=== PATIENT | female | born 1995 | race Caucasian/White ===

== ENCOUNTER 2021-09-21 08:06 | Emergency (ER) | payer BC, SELFPAY ==
[2021-09-21 08:17] VITALS: BP 130/73; PULSE 96; RESP 16; TEMP 36.8; O2SAT 100
--- NOTE | 2021-09-21 08:39 | ED.DIZZY ---
HPI - Dizziness General Chief Complaint: Dizziness Stated Complaint: Fall Injury/Head/Dizziness Time Seen by Provider: 09/21/21 08:45 Source: patient and RN notes reviewed Mode of arrival: ambulatory Limitations: no limitations History of Present Illness HPI Narrative: 25-year-old female presented for complaint of episode of vertigo this morning. She endorses a history of vertigo and takes meclizine as needed. She states she was walking and had a rapid dizzy spell causing her to fall against the wall, she did catch herself with her hands but struck the right forehead on the wall. Denies loss of consciousness, currently headache is located on the left forehead. Endorses nausea, runny nose and dizziness worse with eyes closed. She has not taken anything for symptoms. She did have an episode of vomiting, which she states she was around someone who had bad breath and thinks that contributed to her vomiting. She denies abdominal pain, urinary complaints, chest pain or palpitations, shortness of breath. Was seen by her PCP yesterday. Related Data Home Medications Medication Instructions Recorded Confirmed Advair Diskus DAILY 09/21/21 Lunesta 3 mg PO QPM 09/21/21 09/21/21 albuterol PRN 09/21/21 citalopram 40 mg PO DAILY 09/21/21 09/21/21 clonazepam 0.5 mg PO PRN PRN 09/21/21 09/21/21 meclizine 25 mg PO PRN PRN 09/21/21 09/21/21 trazodone 100 mg PO QPM 09/21/21 09/21/21 Allergies Allergy/AdvReac Type Severity Reaction Status Date / Time latex Allergy Hives Verified 09/21/21 08:28 Penicillins Allergy Hives Verified 09/21/21 08:28 Review of Systems Review of Systems: CONSTITUTIONAL: Endorses malaise, chills, sweats, fever EYES: Denies visual changes, redness, or discharge ENT: Reports rhinorrhea, congestion, sinus pain, otalgia, sore throat CARDIOVASCULAR: Denies chest pain, palpitations, edema RESPIRATORY: Reports cough, post nasal drainage. Denies dyspnea GASTROINTESTINAL: Denies abdominal pain, nausea, vomiting, diarrhea SKIN: Denies rash or itching MUSCULOSKELETAL: Endorses myalgia NEUROLOGIC: Denies headache Exam Narrative: GENERAL: well-appearing, nontoxic HEAD: Normocephalic, atraumatic EYES: EOMI. PERRLA, conjunctivae clear ENT: Mucous membranes moist. TM pearly wilburn with dull light reflex and fluid bilaterally, erythematous canals bilateral; no tragal tenderness. Oropharynx erythematous without lesions or exudate, no drooling, no hoarseness, no trismus, uvula midline. NECK: Supple. No lymphadenopathy CHEST: Clear to auscultation, breath sounds equal. No wheezing, rhonchi, rales, or stridor. No respiratory distress, speaks in full sentences. HEART: Regular rate and rhythm. No murmur heard. SKIN: Warm, dry, no rash. NEURO: Alert and oriented x3. PSYCH: Normal mood and affect Course Course Emergency Course: Patient is aware of diagnosis, understands and agrees to treatment plan. Anticipatory guidance given. Patient agrees to follow-up as directed and is aware of reasons to seek care at the emergency department. Portions of this record may have been created with voice recognition software Level of Care: Express Care Visit Vital Signs Vital signs: Vital Signs Temperature 98.3 F 09/21/21 08:17 Pulse Rate 96 09/21/21 08:17 Respiratory Rate 16 09/21/21 08:17 Blood Pressure 130/73 09/21/21 08:17 Pulse Oximetry 100 09/21/21 08:17 Temperature 98.3 F 09/21/21 08:17 Pulse Rate 96 09/21/21 08:17 Respiratory Rate 16 09/21/21 08:17 Blood Pressure 130/73 09/21/21 08:17 Pulse Oximetry 100 09/21/21 08:17 reviewed MDM - Dizziness Differential Diagnosis Differential diagnosis: Likely benign paroxysmal positional vertigo, orthostatic hypotension and acute vestibular neuronitis Discharge Plan Discharge Clinical Impression: Benign paroxysmal positional vertigo Qualifiers: Laterality: unspecified laterality Qualified Code(s): H81.10 - Benign paroxysmal vertigo, unspecified ea
== END 2021-09-21 09:00 | disposition home or self-care (01) ==
PROVIDERS: Emergency Provider Nurse Practitioner Family; PCP Physician Assistant
DX: H81.10 Benign paroxysmal vertigo, unspecified ear (principal)
CPT/HCPCS: 99213; G0463

== ENCOUNTER 2021-10-30 08:05 | Emergency (ER) | payer BC, SELFPAY ==
[2021-10-30 08:12] VITALS: BP 128/82; PULSE 122; RESP 18; TEMP 36.8; O2SAT 98
--- NOTE | 2021-10-30 08:14 | ED.URI ---
HPI - URI/Sore Throat General Stated Complaint: Cough Time Seen by Provider: 10/30/21 08:17 Source: patient and RN notes reviewed Mode of arrival: ambulatory Limitations: no limitations History of Present Illness HPI Narrative: 25-year-old female presents with concern for cough, nasal congestion, body aches. She reports symptoms started on Friday. She reports the cough has progressively worsened, keeping her awake at night. She reports she has been using nasal spray without relief. She denies fever, chills, sweats. Denies known sick contacts. Reports she had Covid in July. MD elicited complaint: cough and nasal congestion Related Data Home Medications Medication Instructions Recorded Confirmed Lunesta 3 mg PO QPM PRN 09/21/21 10/30/21 citalopram 40 mg PO DAILY 09/21/21 10/30/21 clonazepam 0.5 mg PO PRN PRN 09/21/21 09/21/21 trazodone 100 mg PO QPM PRN 09/21/21 10/30/21 albuterol sulfate 90 mcg INHALATION Q4-6H PRN 10/30/21 10/30/21 norgestrel-ethinyl estradiol 0.3 tablet PO DAILY 10/30/21 10/30/21 [Barrett (28)] Allergies Allergy/AdvReac Type Severity Reaction Status Date / Time latex Allergy Hives Verified 10/30/21 08:17 Penicillins Allergy Hives Verified 10/30/21 08:17 Review of Systems Review of Systems: CONSTITUTIONAL: Denies malaise, chills, sweats, or fever. EYES: Denies visual changes, redness, or discharge. ENT: Reports rhinorrhea, congestion. Denies sinus pain, otalgia and sore throat. CARDIOVASCULAR: Denies chest pain, palpitations, or edema. RESPIRATORY: Reports cough. Denies dyspnea. GASTROINTESTINAL: Denies abdominal pain, nausea, vomiting, diarrhea SKIN: Denies rash or itching. MUSCULOSKELETAL: Reports myalgia. NEUROLOGIC: Denies headache. All systems reviewed & are unremarkable except as noted in HPI and below PMFSH Comments At time of signature, agree with nursing past medical, surgical, social and family history. There is no relevant family history pertinent to the presenting complaint Exam Narrative: GENERAL: Well-appearing, well-nourished, and in no acute distress. HEAD: Normocephalic EYES: PERRLA, conjunctivae clear ENT: Nares clear, turbinates edematous and erythematous, clear discharge. Mucous membranes moist. TM pearly wilburn with dull light reflex bilaterally; no tragal tenderness. Oropharynx not erythematous without lesions. Tonsils not enlarged and without exudate, no drooling, no hoarseness, no trismus, uvula midline. Cough noted NECK: Supple. No lymphadenopathy CHEST: Clear to auscultation, breath sounds equal. No wheezing, rhonchi, rales, or stridor. No respiratory distress, speaks in full sentences. HEART: Regular rate and rhythm. No murmur heard. SKIN: Warm, dry, no rash. NEURO: Alert and oriented x3. PSYCH: Normal mood and affect Course Course Emergency Course: Patient is aware of diagnosis, understands and agrees to treatment plan. Anticipatory guidance given. Patient agrees to follow-up as directed and is aware of reasons to seek care at the emergency department. Portions of this record may have been created with voice recognition software Level of Care: Express Care Visit Vital Signs Vital signs: Reviewed. MDM - URI/Sore Throat MDM Narrative Medical decision making narrative: Differential diagnosis considered: Jimenez virus, strep pharyngitis, allergic rhinitis, upper respiratory tract infection, sinusitis, rhinosinusitis, nasopharyngitis. viral pharyngitis, otitis media, otitis externa, pneumonia, bronchitis, viral cough syndrome, viral syndrome, and influenza. Exam findings show no acute concerns or changes; patient is non-toxic appearing and is in no distress. Patient is appropriate for outpatient treatment and follow-up. Lab Data Attestation: I reviewed the patient's lab results. Critical Care Time Critical Care Time Critical Care Time: No Discharge Plan Discharge Clinical Impression: Sinobronchitis Patient Disposition: Home, Self-Care Condition: S
[2021-10-30 08:25] VITALS: BP 128/82; PULSE 122; RESP 18; TEMP 36.8; O2SAT 98
== END 2021-10-30 08:44 | disposition home or self-care (01) ==
PROVIDERS: Emergency Provider Nurse Practitioner; PCP Physician Assistant
DX: J32.9 Chronic sinusitis, unspecified (principal); J40 Bronchitis, not specified as acute or chronic; F32.A Depression, unspecified; F41.9 Anxiety disorder, unspecified
CPT/HCPCS: 87804; 99213; G0463

== ENCOUNTER 2021-11-16 14:47 | Emergency (ER) | payer BC, SELFPAY ==
--- NOTE | 2021-11-16 14:49 | ED.NAVMDI ---
HPI - Nausea/Vomiting/Diarrhea General Chief complaint: Nausea/Vomiting/Diarrhea Stated complaint: nausea diahhrea Time Seen by Provider: 11/16/21 14:49 Source: patient and RN notes reviewed History of Present Illness HPI Narrative: Patient is a 25-year-old female who presents the urgent care with complaints of nausea, vomiting and diarrhea. 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 Patient states that her symptoms have been improving and she has not had any vomiting or diarrhea in the last 24 hours. Patient states that she has been able to eat and has been sticking to the brat diet. Denies any fevers. Patient states she needs a work excuse for her time off. No other acute complaints. No acute distress noted. Patient aware of the plan of care. Some parts of this dictation were generated by voice recognition software and may contain typographical and/or grammatical inaccuracies. Related Data Home Medications Medication Instructions Recorded Confirmed Lunesta 3 mg PO QPM PRN 09/21/21 10/30/21 citalopram 40 mg PO DAILY 09/21/21 10/30/21 trazodone 100 mg PO QPM PRN 09/21/21 10/30/21 albuterol sulfate 90 mcg INHALATION Q4-6H PRN 10/30/21 10/30/21 norgestrel-ethinyl estradiol 0.3 tablet PO DAILY 10/30/21 10/30/21 [Barrett (28)] azelastine INTRANASAL 11/16/21 famotidine 20 mg DIRECTED 11/16/21 11/16/21 fluticasone propion-salmeterol 250 inh INHALATION DIRECTED 11/16/21 11/16/21 [Advair Diskus] Allergies Allergy/AdvReac Type Severity Reaction Status Date / Time latex Allergy Hives Verified 10/30/21 08:17 Penicillins Allergy Hives Verified 10/30/21 08:17 Review of Systems Review of Systems: CONSTITUTIONAL: Denies fever, chills, or sweats. EYES: Denies visual changes, redness, or discharge. ENT: Denies rhinorrhea, congestion, sore throat, or otalgia. CARDIOVASCULAR: Denies chest pain, palpitations, or edema. RESPIRATORY: Denies cough or dyspnea. GASTROINTESTINAL: Reports of improving nausea, vomiting, diarrhea and abdominal cramping GENITOURINARY: Denies dysuria or hematuria. SKIN: Denies rash or itching. MUSCULOSKELETAL: Denies back pain, joint pain, or myalgia. NEUROLOGIC: Denies headache, numbness, or weakness. All other systems reviewed are negative, except as documented in HPI. PMFSH Comments At the time of my signature, I reviewed and agree with the nursing past medical, surgical, social, and family history. There is no relevant family history pertinent to the patient complaint. Exam Narrative: GENERAL: This is a well-nourished, well-developed patient, in no apparent distress. HEAD: normocephalic, atraumatic. EYES: PERRL. Sclera clear/white. Vision is grossly intact. EARS: External ears normal NOSE: External nose normal with no obvious nasal discharge, nares without redness, no rhinorrhea. THROAT: Mucous membranes moist NECK: Neck supple CARDIOVASCULAR: Regular rate and rhythm without murmurs, gallops, or rubs. RESPIRATORY: Clear to auscultation. Breath sounds equal bilaterally. No wheezes, rales, or rhonchi. GASTROINTESTINAL: Abdomen soft, non-tender, nondistended. Bowel sounds are active. SKIN: warm, intact with no suspicious lesions or rash, good texture and turgor. NEURO: awake, alert, and oriented to person, place and time. There were no obvious focal neurologic abnormalities. EXTREMITIES: No clubbing, cyanosis, or edema. Course Course Level of Care: Express Care Visit Vital Signs Vital signs: Vital Signs Temperature 98.3 F 11/16/21 14:51 Pulse Rate 107 H 11/16/21 14:51 Respiratory Rate 16 11/16/21 14:51 Blood Pressure 129/84 11/16/21 14:51 Pulse Oximetry 100 11/16/21 14:51 Temperature 98.3 F 11/16/21 14:51 Pulse Rate 107 H 11/16/21 14:51 Respiratory Rate 16 11/16/21 14:51 Blood Pressure 129/84 11/16/21 14:51 Pulse Oximetry 100 11/16/21 14:51 Reviewed MDM - Nausea/Vomiting/Diarr
[2021-11-16 14:51] VITALS: BP 129/84; PULSE 107; RESP 16; TEMP 36.8; O2SAT 100
== END 2021-11-16 15:20 | disposition home or self-care (01) ==
PROVIDERS: Emergency Provider Nurse Practitioner Family; PCP Physician Assistant
DX: R11.2 Nausea with vomiting, unspecified (principal); J45.909 Unspecified asthma, uncomplicated; F41.9 Anxiety disorder, unspecified; F32.A Depression, unspecified
CPT/HCPCS: 99211; G0463

== ENCOUNTER 2021-12-07 08:19 | Emergency (ER) | payer BC, SELFPAY ==
--- NOTE | 2021-12-07 08:27 | ED.URI ---
HPI - URI/Sore Throat General Chief Complaint: Upper Respiratory Infection Stated Complaint: aches congestion sore throat Time Seen by Provider: 12/07/21 08:33 Source: patient, RN notes reviewed and old records reviewed Mode of arrival: ambulatory Limitations: no limitations History of Present Illness HPI Narrative: 25-year-old female who presents to [facility] with complaints of sore throat, headache, dry cough, nasal congestion,body aches,low grade temperature up to 100.5F, some nausea,sinus congestion for the past 3 days. Patient reports history of asthma is taking inhalers as prescribed, denies any acute shortness of breath or any wheezing, reports that cough is dry. Patient has had COVID vaccinations and COVID in July of 2021, has also had flu shot. Patient reports that she has been taking Ibuprofen and also Zyrtec daily for her symptoms. MD elicited complaint: fever (low grade), cough, sore throat, nasal congestion and other (sinus congestion) Pertinent past history: asthma Onset (ago): day(s) (3) Consistency: progressively worsening Severity: moderate Pain scale (0-10): 6 Description of mucous: clear Able to tolerate fluids by mouth: Yes Exacerbating factors: swallowing Associated symptoms: fever (low grade), myalgias, headache, nasal congestion, sore throat, cough and nausea Treatments prior to arrival: ibuprofen Related Data Home Medications Medication Instructions Recorded Confirmed citalopram 40 mg PO DAILY 09/21/21 12/07/21 trazodone 100 mg PO QPM PRN 09/21/21 12/07/21 albuterol sulfate 90 mcg INHALATION Q4-6H PRN 10/30/21 12/07/21 norgestrel-ethinyl estradiol 0.3 tablet PO DAILY 10/30/21 12/07/21 [Barrett (28)] azelastine 137 mcg INTRANASAL DIRECTED 11/16/21 12/07/21 famotidine 20 mg PO BID 11/16/21 12/07/21 eszopiclone 3 mg PO DAILY 12/07/21 12/07/21 fluticasone propion-salmeterol 1 inh INHALATION DAILY 12/07/21 12/07/21 [Advair Diskus] montelukast 10 mg PO DAILY 12/07/21 12/07/21 Allergies Allergy/AdvReac Type Severity Reaction Status Date / Time latex Allergy Hives Verified 12/07/21 08:36 Penicillins Allergy Hives Verified 12/07/21 08:36 Review of Systems Review of Systems: CONSTITUTIONAL: Low grade fever, chills, or sweats. EYES: Denies visual changes, redness, or discharge. ENT: Denies rhinorrhea,positive for congestion, sore throat, no otalgia. CARDIOVASCULAR: Denies chest pain, palpitations, or edema. RESPIRATORY: Positive for dry cough denies dyspnea. GASTROINTESTINAL: Denies abdominal pain,reports some nausea,no vomiting, or diarrhea. GENITOURINARY: Denies dysuria or hematuria. SKIN: Denies rash or itching. MUSCULOSKELETAL: Denies back pain, joint pain, reports body aches NEUROLOGIC: Reports headache,no numbness, or weakness. PSYCHIATRIC: Positive for history of anxiety or depression. All systems reviewed & are unremarkable except as noted in HPI and below PMFSH Past Medical History Medical History (Updated 12/07/21 @ 09:12 by Holli Kenyon NP) ADHD (attention deficit hyperactivity disorder) Asthma COVID-15 August 2021 Depression PTSD (post-traumatic stress disorder) Surgical History Surgical History (Updated 12/07/21 @ 08:53 by Holli Kenyon NP) H/O adenoidectomy [place] teeth extracted Family History Family History (Updated 12/07/21 @ 08:55 by Holli Kenyon NP) Father Throat cancer Mother Asthma Acute myocardial infarction Heart disease Hypertension Grandparent Heart disease Macular degeneration Social History Social History (Updated 12/07/21 @ 08:56 by Holli Kenyon NP) Smoking status: Never smoker Alcohol intake: current Alcohol use details: rare Substance use type: does not use Living arrangements: with family 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
[2021-12-07 08:28] VITALS: BP 137/72; PULSE 111; RESP 16; TEMP 37.3; O2SAT 100
== END 2021-12-07 09:12 | disposition home or self-care (01) ==
PROVIDERS: Emergency Provider Registered Nurse; PCP Physician Assistant
DX: J06.9 Acute upper respiratory infection, unspecified (principal); J45.909 Unspecified asthma, uncomplicated; F32.A Depression, unspecified; F43.10 Post-traumatic stress disorder, unspecified; Z86.16 Personal history of COVID-19
CPT/HCPCS: 87081; 87804; 87880; 99213; G0463

== ENCOUNTER 2021-12-13 15:19 | Emergency (ER) | payer BC, SELFPAY ==
--- NOTE | 2021-12-13 15:21 | ED.URI ---
HPI - URI/Sore Throat General Chief Complaint: Upper Respiratory Infection Stated Complaint: upper respiratory Time Seen by Provider: 12/13/21 15:21 Source: patient Mode of arrival: ambulatory Limitations: no limitations History of Present Illness HPI Narrative: Ms. Bradley is a 25-year-old female patient presenting to the clinic today with complaints of productive cough, sore throat, and bilateral ear pain x1 week. She reports she was seen here last week and was diagnosed with an upper respiratory infection was given a prescription for some prednisone. She reports now her cough is productive and she is bringing up some white phlegm, history of asthma. MD elicited complaint: sore throat and nasal congestion Related Data Home Medications Medication Instructions Recorded Confirmed citalopram 40 mg PO DAILY 09/21/21 12/13/21 trazodone 100 mg PO QPM PRN 09/21/21 12/13/21 albuterol sulfate 90 mcg INHALATION Q4-6H PRN 10/30/21 12/13/21 norgestrel-ethinyl estradiol 0.3 tablet PO DAILY 10/30/21 12/13/21 [Barrett (28)] azelastine 137 mcg INTRANASAL DIRECTED 11/16/21 12/13/21 famotidine 20 mg PO BID 11/16/21 12/13/21 fluticasone propion-salmeterol 1 inh INHALATION DAILY 12/07/21 12/13/21 [Advair Diskus] montelukast 10 mg PO DAILY 12/07/21 12/13/21 Allergies Allergy/AdvReac Type Severity Reaction Status Date / Time latex Allergy Hives Verified 12/13/21 15:28 Penicillins Allergy Hives Verified 12/13/21 15:28 Review of Systems Review of Systems: Pertinent positives per HPI. Patient denies any fever, chills, rash, headache, visual changes, dizziness, cough, shortness of breath, chest pain, palpitations, nausea, vomiting, diarrhea, constipation, abdominal pain, or any urinary issues. 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 There is no relevant family history pertinent to the patient complaint. Exam Narrative: General: Well-developed, well nourished, in no apparent distress Head: Normocephalic, atraumatic Eyes: Pupils equally round and reactive to light bilaterally, EOM intact, sclera and conjunctive clear, no discharge, lids normal Ears: TMs intact, red, and bulging, right ear canals clear, left ear canal red with greenish discharge, grossly hearing normal. Nose: Nares patent, clear nasal discharge, mild inflammation, no sinus tenderness. Mouth: Oral pharynx without lesions or masses, good dentition, MMM. Oropharynx red Neck: Supple, trachea midline, mild enlargement of anterior cervical nodes, no thyroid masses or goiter palpable. Cardio: Regular rate and rhythm, s1 and s2 normal, no murmur appreciated. Resp: Faint expiratory wheezing posteriorly lower bases otherwise clear, no rhonchi, rales, or rubs Course Course Emergency Course: Portions of this record may have been created with voice recognition software. Level of Care: Express Care Visit Vital Signs Vital signs: Vital signs
[2021-12-13 15:28] VITALS: BP 135/93; PULSE 93; RESP 16; TEMP 36.6; O2SAT 100
== END 2021-12-13 16:05 | disposition home or self-care (01) ==
PROVIDERS: Emergency Provider Nurse Practitioner Family; PCP Physician Assistant
DX: J40 Bronchitis, not specified as acute or chronic (principal); H66.003 Acute suppurative otitis media without spontaneous rupture of ear drum, bilateral; J02.9 Acute pharyngitis, unspecified; H60.312 Diffuse otitis externa, left ear; J45.909 Unspecified asthma, uncomplicated; F41.9 Anxiety disorder, unspecified; F32.A Depression, unspecified; Z86.16 Personal history of COVID-19
CPT/HCPCS: 99213; G0463

== ENCOUNTER 2022-01-01 08:36 | Emergency (ER) | payer BC, SELFPAY ==
[2022-01-01 08:42] VITALS: BP 134/79; PULSE 98; RESP 18; TEMP 36.7; O2SAT 100
--- NOTE | 2022-01-01 09:04 | ED.EAR ---
HPI - Ear Problem General Chief complaint: Ear Stated complaint: fever and ear pressure Time Seen by Provider: 01/01/22 09:04 Source: patient and RN notes reviewed Mode of arrival: ambulatory Limitations: no limitations History of Present Illness HPI Narrative: 26-year-old female presents with concern for fever, ear pressure. She reports she has been ill for over a month has been seen in this clinic several times and has also been seen by her primary care doctor. She reports she has had several round of antibiotics and steroids. Reports symptoms improved but do not resolve. She reports she began having worsening symptoms yesterday with high fever, fatigue, headache. Reports taking Tylenol. She reports she is been taking her usual allergy and sinus medications, including sinus rinses. 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 MD Complaint: ear pain Related Data Home Medications Medication Instructions Recorded Confirmed citalopram 40 mg tablet 40 mg PO DAILY 09/21/21 01/01/22 trazodone 100 mg tablet 100 mg PO QPM PRN Sleep 09/21/21 01/01/22 albuterol sulfate 90 mcg/actuation 90 mcg inhalation Q4-6H PRN 10/30/21 01/01/22 aerosol inhaler Shortness Of Breath norgestrel 0.3 mg-ethinyl 0.3 tablet PO DAILY 10/30/21 01/01/22 estradiol 30 mcg tablet (Barrett (28)) azelastine 137 mcg (0.1 %) nasal 137 mcg intranasal DIRECTED 11/16/21 01/01/22 spray aerosol famotidine 20 mg tablet 20 mg PO BID 11/16/21 01/01/22 montelukast 10 mg tablet 10 mg PO DAILY 12/07/21 01/01/22 Allergies Allergy/AdvReac Type Severity Reaction Status Date / Time latex Allergy Hives Verified 01/01/22 09:14 Penicillins Allergy Hives Verified 01/01/22 09:14 Review of Systems Review of Systems: CONSTITUTIONAL: Reports malaise, fatigue, fever. EYES: Denies visual changes, redness, or discharge. ENT: Reports rhinorrhea, congestion. Denies sinus pain, and sore throat. Reports ear fullness and occasional pain bilaterally CARDIOVASCULAR: Denies chest pain, palpitations, or edema. RESPIRATORY: Denies cough. Denies dyspnea. GASTROINTESTINAL: Reports left upper quadrant abdominal discomfort, mild nausea, vomiting, diarrhea SKIN: Denies rash or itching. MUSCULOSKELETAL: Reports myalgia. NEUROLOGIC: Reports headache. All systems reviewed & are unremarkable except as noted in HPI and below PMFSH Past Medical History Medical History ADHD (attention deficit hyperactivity disorder) Asthma COVID-15 August 2021 Depression PTSD (post-traumatic stress disorder) Surgical History Surgical History H/O adenoidectomy [place] teeth extracted Family History Family History Father Throat cancer Mother Asthma Acute myocardial infarction Heart disease Hypertension Grandparent Heart disease Macular degeneration Social History Social History Smoking status: Never smoker Alcohol intake: current Alcohol use details: rare Substance use type: does not use 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 There is no relevant family history pertinent to the presenting complaint Exam Narrative: GENERAL: Nontoxic-appearing and in no acute distress. HEAD: Normocephalic EYES: PERRLA, conjunctivae clear ENT: Nares clear, clear discharge. Mucous membranes moist. TM very mildly erythematous, not bulging with dull light reflex bilaterally; no tragal tenderness. Oropharynx not erythematous without lesions. Tonsils not enlarged and without exudate, no drooling, no hoarseness, no trismus, uvula midline. NECK: Supple. No lymphadenopathy CHEST: Sylvie
== END 2022-01-01 09:46 | disposition home or self-care (01) ==
PROVIDERS: Emergency Provider Nurse Practitioner; PCP Physician Assistant
DX: B27.90 Infectious mononucleosis, unspecified without complication (principal); Z20.822 Contact with and (suspected) exposure to COVID-19; J45.909 Unspecified asthma, uncomplicated; F32.A Depression, unspecified; Z86.16 Personal history of COVID-19
CPT/HCPCS: 36416; 86308; 87426; 87804; 99213; C9803; G0463

== ENCOUNTER 2022-06-28 16:54 | Emergency (ER) | payer BC, SELFPAY ==
[2022-06-28 17:00] VITALS: BP 127/73; PULSE 95; RESP 16; TEMP 36.6; O2SAT 99
--- NOTE | 2022-06-28 19:34 | ED.URI ---
HPI - URI/Sore Throat General Chief Complaint: Upper Respiratory Infection Stated Complaint: coughs and make chest and throat hurt Time Seen by Provider: 06/28/22 19:35 Source: patient, RN notes reviewed and old records reviewed Mode of arrival: ambulatory Limitations: no limitations History of Present Illness HPI Narrative: 26 year old female who presets to express care with complaints of cough, sore throat, hurts to swallow, coughed so hard last night she vomited denies any fevers. Patient reports that she saw her PCP 2 weeks ago and received Doxycycline and Benzonatate for her cough. Patient reports that she has not had recent fever. Patient states she has had COVID vaccinations and booster and has had flu shot. Patient reports that she has used inhaler sudafed and also Mucinex for her symptoms. MD elicited complaint: cough and sore throat Pertinent past history: asthma Pain scale (0-10): 5 Treatments prior to arrival: other (inhaler sudafed and Mucinex) Related Data Home Medications Medication Instructions Recorded Confirmed citalopram 40 mg tablet 40 mg PO DAILY 09/21/21 06/28/22 trazodone 100 mg tablet 100 mg PO QPM PRN Sleep 09/21/21 06/28/22 albuterol sulfate 90 mcg/actuation 90 mcg inhalation Q4-6H PRN 10/30/21 06/28/22 aerosol inhaler Shortness Of Breath norgestrel 0.3 mg-ethinyl 0.3 tablet PO DAILY 10/30/21 06/28/22 estradiol 30 mcg tablet (Barrett (28)) azelastine 137 mcg (0.1 %) nasal 137 mcg intranasal DIRECTED 11/16/21 06/28/22 spray aerosol famotidine 20 mg tablet 20 mg PO BID 11/16/21 06/28/22 montelukast 10 mg tablet 10 mg PO DAILY 12/07/21 06/28/22 Allergies Allergy/AdvReac Type Severity Reaction Status Date / Time latex Allergy Hives Verified 06/28/22 18:25 Penicillins Allergy Hives Verified 06/28/22 18:25 Review of Systems Review of Systems: CONSTITUTIONAL: Denies malaise, chills, sweats, or fever. EYES: Denies visual changes, redness, or discharge. ENT: Reports rhinorrhea, congestion, sinus pain,no otalgia positive for sore throat. CARDIOVASCULAR: Denies chest pain, palpitations, or edema. RESPIRATORY: Reports cough.? Denies dyspnea, chest sore from frequent cough, has coughed so hard she has vomited GASTROINTESTINAL: Denies abdominal pain, nausea, vomiting, diarrhea SKIN: Denies rash or itching. MUSCULOSKELETAL: Denies myalgia. NEUROLOGIC: Denies headache. All systems reviewed & are unremarkable except as noted in HPI and below PMFSH Past Medical History Medical History ADHD (attention deficit hyperactivity disorder) Asthma COVID-15 August 2021 Depression PTSD (post-traumatic stress disorder) Surgical History Surgical History H/O adenoidectomy [place] teeth extracted Family History Family History Father Throat cancer Mother Asthma Acute myocardial infarction Heart disease Hypertension Grandparent Heart disease Macular degeneration Social History Social History Smoking status: Never smoker Alcohol intake: current Alcohol use details: rare Substance use type: does not use 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 There is no relevant family history pertinent to the presenting complaint Exam Narrative: GENERAL: Well-appearing, well-nourished, and in no acute distress. HEAD: Normocephalic EYES: PERRLA, conjunctivae clear ENT: Nares clear, turbinates edematous and erythematous, clear discharge. Mucous membranes moist. TM pearly wilburn with dull light reflex bilaterally; no tragal tenderness. Oropharynx erythematous without lesions. Tonsils re
== END 2022-06-28 19:51 | disposition home or self-care (01) ==
PROVIDERS: Emergency Provider Registered Nurse; PCP Physician Assistant
DX: J02.0 Streptococcal pharyngitis (principal); R05.9 Cough, unspecified; J45.909 Unspecified asthma, uncomplicated
CPT/HCPCS: 87804; 99213; G0463

== ENCOUNTER 2022-07-10 08:13 | Emergency (ER) | payer BC, SELFPAY ==
[2022-07-10 08:18] VITALS: BP 126/90; PULSE 112; RESP 16; TEMP 36.7; O2SAT 99
--- NOTE | 2022-07-10 08:41 | ED.URI ---
HPI - URI/Sore Throat General Chief Complaint: Upper Respiratory Infection Stated Complaint: Cough/Vomiting Time Seen by Provider: 07/10/22 08:41 Source: patient and RN notes reviewed Mode of arrival: ambulatory Limitations: no limitations History of Present Illness HPI Narrative: 26 y/o female presented for c/o persistent cough and sinus drainage for 2 weeks. In mid May her PCP gave doxycycline and benzonatate. On 06/28/22 pt was given prednisone, azithromycin and guaifenesin with codeine. She has completed the medication as directed without change in symptoms. She endorses nausea and vomiting and diarrhea starting yesterday. She stays the vomiting is sinus mucus. She is able to keep food down. Patient denies chest pain, heart racing, shortness of breath, abdominal pain, fevers or chills. History of asthma, using inhaler as needed. She had a negative covid test at home yesterday. MD elicited complaint: cough Related Data Home Medications Medication Instructions Recorded Confirmed citalopram 40 mg tablet 40 mg PO DAILY 09/21/21 07/10/22 trazodone 100 mg tablet 100 mg PO QPM PRN Sleep 09/21/21 07/10/22 albuterol sulfate 90 mcg/actuation 90 mcg inhalation Q4-6H PRN 10/30/21 07/10/22 aerosol inhaler Shortness Of Breath norgestrel 0.3 mg-ethinyl 0.3 tablet PO DAILY 10/30/21 07/10/22 estradiol 30 mcg tablet (Barrett (28)) azelastine 137 mcg (0.1 %) nasal 137 mcg intranasal DIRECTED 11/16/21 07/10/22 spray aerosol famotidine 20 mg tablet 20 mg PO BID 11/16/21 07/10/22 montelukast 10 mg tablet 10 mg PO DAILY 12/07/21 07/10/22 Allergies Allergy/AdvReac Type Severity Reaction Status Date / Time latex Allergy Hives Verified 07/10/22 08:25 Penicillins Allergy Hives Verified 07/10/22 08:25 Review of Systems Review of Systems: CONSTITUTIONAL: Denies malaise, chills, sweats, fever EYES: Denies visual changes, redness, or discharge ENT: Reports rhinorrhea, congestion, denies sinus pain, otalgia, sore throat CARDIOVASCULAR: Denies chest pain, palpitations, edema RESPIRATORY: Reports cough, post nasal drainage. Denies dyspnea GASTROINTESTINAL: Denies abdominal pain SKIN: Denies rash or itching MUSCULOSKELETAL: denies myalgia NEUROLOGIC: Denies headache PMFSH Past Medical History Medical History ADHD (attention deficit hyperactivity disorder) Asthma COVID-15 August 2021 Depression PTSD (post-traumatic stress disorder) Surgical History Surgical History H/O adenoidectomy [place] teeth extracted Family History Family History Father Throat cancer Mother Asthma Acute myocardial infarction Heart disease Hypertension Grandparent Heart disease Macular degeneration Social History Social History Smoking status: Never smoker Alcohol intake: current Alcohol use details: rare Substance use type: does not use 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 TMs pearly wilburn with dull light reflex bilaterally; no tragal tenderness. Oropharynx erythematous without lesions or exudate CHEST: Clear to auscultation, breath sounds equal. No wheezing, rhonchi, rales, or stridor. No respiratory distress, speaks in full sentences. HEART: Regular rate and rhythm. No murmur heard. SKIN: Warm, dry, no rash. NEURO: Alert and oriented x3. PSYCH: Normal mood and affect Course Course Emergency Course: Patient is aware of diagnosis, understands and agrees to treatment plan. Anticipatory guidance given. Patient agrees to follow-up as directed and is aware of reasons to seek care at the emergen
== END 2022-07-10 09:36 | disposition home or self-care (01) ==
PROVIDERS: Emergency Provider Nurse Practitioner Family; PCP Physician Assistant
DX: B34.9 Viral infection, unspecified (principal); K21.9 Gastro-esophageal reflux disease without esophagitis; J45.909 Unspecified asthma, uncomplicated; F32.A Depression, unspecified; F43.10 Post-traumatic stress disorder, unspecified; Z86.16 Personal history of COVID-19
CPT/HCPCS: 87426; 99213; C9803; G0463

== ENCOUNTER 2022-09-02 08:22 | Emergency (ER) | payer BC, SELFPAY ==
[2022-09-02 08:28] VITALS: BP 125/77; PULSE 104; RESP 20; TEMP 36.8; O2SAT 98
--- NOTE | 2022-09-02 08:35 | ED.URI ---
HPI - URI/Sore Throat General Chief Complaint: Upper Respiratory Infection Stated Complaint: sinus infection and crusty eye Time Seen by Provider: 09/02/22 08:30 Source: patient and RN notes reviewed History of Present Illness HPI Narrative: patient is a 26-year-old female who presents to the Urgent Care with complaints of sinus pressure and watery eyes. Patient states that it started Friday. Denies any fever, nausea or vomiting. Also reports of right ear pain. Patient has been taking sinus medication, Sinus rinse, and her prescriptions Singulair. Patient states she has also been using her inhaler and nebulizer as needed for cough. Reports of positive exposure to strep at work. Denies sore throat. No other acute complaints. No acute distress noted. Patient aware of plan of care. Some parts of this dictation were generated by voice recognition software and may contain typographical and/or grammatical inaccuracies. Related Data Home Medications Medication Instructions Recorded Confirmed citalopram 40 mg tablet 40 mg PO DAILY 09/21/21 09/02/22 trazodone 100 mg tablet 100 mg PO QPM PRN Sleep 09/21/21 09/02/22 albuterol sulfate 90 mcg/actuation 90 mcg inhalation Q4-6H PRN 10/30/21 09/02/22 aerosol inhaler Shortness Of Breath norgestrel 0.3 mg-ethinyl 0.3 tablet PO DAILY 10/30/21 09/02/22 estradiol 30 mcg tablet (Barrett (28)) azelastine 137 mcg (0.1 %) nasal 137 mcg intranasal DIRECTED 11/16/21 09/02/22 spray aerosol famotidine 20 mg tablet 20 mg PO BID 11/16/21 09/02/22 montelukast 10 mg tablet 10 mg PO DAILY 12/07/21 09/02/22 Allergies Allergy/AdvReac Type Severity Reaction Status Date / Time latex Allergy Hives Verified 09/02/22 08:45 Penicillins Allergy Hives Verified 09/02/22 08:45 Review of Systems Review of Systems: CONSTITUTIONAL: Denies fever, chills, or sweats. EYES: reports of watery eyes ENT: reports of sinus pressure, congestion, right otalgia CARDIOVASCULAR: Denies chest pain, palpitations, or edema. RESPIRATORY: Denies cough or dyspnea. GASTROINTESTINAL: Denies abdominal pain, nausea, vomiting, or diarrhea. GENITOURINARY: Denies dysuria or hematuria. SKIN: Denies rash or itching. MUSCULOSKELETAL: Denies back pain, joint pain, or myalgia. NEUROLOGIC: Denies headache, numbness, or weakness. All other systems reviewed are negative, except as documented in HPI. [facility] Past Medical History Medical History ADHD (attention deficit hyperactivity disorder) Asthma COVID-15 August 2021 Depression PTSD (post-traumatic stress disorder) Surgical History Surgical History H/O adenoidectomy [place] teeth extracted Family History Family History Father Throat cancer Mother Asthma Acute myocardial infarction Heart disease Hypertension Grandparent Heart disease Macular degeneration Social History Social History Smoking status: Never smoker Alcohol intake: current Alcohol use details: rare Substance use type: does not use Living arrangements: with family 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 There is no relevant family history pertinent to the patient complaint. Exam Narrative: GENERAL: This is a well-nourished, well-developed patient, in no apparent distress. HEAD: normocephalic, atraumatic. EYES: PERRL. Sclera clear/white. Vision is grossly intact. EARS: External ears normal, auditory canals clear and without drainage, TMs normal without perforation. Hearing grossly intact. NOSE: External nose normal with no obvious nasal disc
== END 2022-09-02 08:55 | disposition home or self-care (01) ==
PROVIDERS: Emergency Provider Nurse Practitioner Family; PCP Physician Assistant
DX: J32.9 Chronic sinusitis, unspecified (principal); J45.909 Unspecified asthma, uncomplicated; Z86.16 Personal history of COVID-19; F32.A Depression, unspecified
CPT/HCPCS: 87081; 87880; 99213; G0463

== ENCOUNTER 2022-10-02 08:03 | Emergency (ER) | payer BC, SELFPAY ==
[2022-10-02 08:07] VITALS: BP 128/75; PULSE 100; RESP 16; TEMP 36.6; O2SAT 100
--- NOTE | 2022-10-02 08:07 | ED.EAR ---
HPI - Ear Problem General Chief complaint: Neuro Symptoms/Deficit Stated complaint: Ear Pain/Numbness to Right Side OF Face Time Seen by Provider: 10/02/22 08:07 Source: patient and RN notes reviewed History of Present Illness HPI Narrative: Patient is a 26-year-old female who presents to urgent care with complaints of bilateral ear pain, loss of taste for 3 days. Patient states she took a COVID test yesterday which was negative. Denies any upper respiratory complaints or fever. Patient also reports of right-sided facial numbness that started this morning. Patient states that she is not having any tingling or other weakness or numbness and other parts of her body. Patient has been taking Zyrtec for the bilateral ear pain and using Q-tips. No other acute complaints. No acute distress noted. Patient ambulating without difficulty. Patient aware of the plan of care. Some parts of this dictation were generated by voice recognition software and may contain typographical and/or grammatical inaccuracies. Related Data Home Medications Medication Instructions Recorded Confirmed citalopram 40 mg tablet 40 mg PO DAILY 09/21/21 09/02/22 trazodone 100 mg tablet 100 mg PO QPM PRN Sleep 09/21/21 09/02/22 albuterol sulfate 90 mcg/actuation 90 mcg inhalation Q4-6H PRN 10/30/21 09/02/22 aerosol inhaler Shortness Of Breath norgestrel 0.3 mg-ethinyl 0.3 tablet PO DAILY 10/30/21 09/02/22 estradiol 30 mcg tablet (Barrett (28)) famotidine 20 mg tablet 20 mg PO BID 11/16/21 09/02/22 montelukast 10 mg tablet 10 mg PO DAILY 12/07/21 09/02/22 eszopiclone 3 mg tablet 3 mg PO DAILY 10/02/22 10/02/22 Allergies Allergy/AdvReac Type Severity Reaction Status Date / Time latex Allergy Hives Verified 10/02/22 08:14 Penicillins Allergy Hives Verified 10/02/22 08:14 Review of Systems Review of Systems: CONSTITUTIONAL: Denies fever, chills, or sweats. EYES: Denies visual changes, redness, or discharge. ENT: Denies rhinorrhea, congestion, sore throat. Reports of Bilateral otalgia CARDIOVASCULAR: Denies chest pain, palpitations, or edema. RESPIRATORY: Denies cough or dyspnea. GASTROINTESTINAL: Denies abdominal pain, nausea, vomiting, or diarrhea. GENITOURINARY: Denies dysuria or hematuria. SKIN: Denies rash or itching. MUSCULOSKELETAL: Denies back pain, joint pain, or myalgia. NEUROLOGIC: Reports of facial numbness on the right side. Denies headache, numbness, or weakness. All other systems reviewed are negative, except as documented in HPI. [facility] [place] Past Medical History Medical History ADHD (attention deficit hyperactivity disorder) Asthma COVID-15 August 2021 Depression PTSD (post-traumatic stress disorder) Surgical History Surgical History H/O adenoidectomy [place] teeth extracted Family History Family History Father Throat cancer Mother Asthma Acute myocardial infarction Heart disease Hypertension Grandparent Heart disease Macular degeneration Social History Social History Smoking status: Never smoker Alcohol intake: current Alcohol use details: rare Substance use type: does not use Living arrangements: with family 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 There is no relevant family history pertinent to the patient complaint. Exam Narrative: GENERAL: This is a well-nourished, well-developed patient, in no apparent distress. HEAD: normocephalic, atraumatic. EYES: PERRL. Sclera clear/white. Vision is grossly intact. EARS: External ears normal, auditory canals clear and without dr
== END 2022-10-02 08:25 | disposition left against medical advice (07) ==
PROVIDERS: Emergency Provider Nurse Practitioner Family; PCP Physician Assistant
DX: R20.0 Anesthesia of skin (principal); H69.81 Other specified disorders of Eustachian tube, right ear
CPT/HCPCS: 99211; G0463